=== PATIENT | female | born 1990 | race Caucasian/White ===

== ENCOUNTER → 2020-12-13 | Outpatient (CLI) | payer OTHER ==
--- NOTE | 2020-12-13 16:34 | FL ---
EXAMINATION TYPE: FL hysterosalpingography DATE OF EXAM: 12/13/2020 COMPARISON: None HISTORY: Infertility TECHNIQUE: The procedure was explained to the patient, the risks, indications and benefits. All quest ions are answered. Verbal informed consent was obtained. Timeout was performed. The patient was placed on the fluoroscopy table in supine position. Speculum was placed in the vagina l vault was cleansed with Betadine. The cervix was localized. The catheter was placed balloon was inf lated and under fluoroscopic observation contrast was administered. 6 mL Isovue 200 was utilized. Bal loon was deflated and additional imaging was performed. Patient was placed prone on the table for a o verhead radiograph. Discharge instructions were discussed with the patient. Patient was released in stable condition iliana retana tolerated the procedure very well. FINDINGS: Storekeeper Steward view: Storekeeper Steward view is felt to be noncontributory. Hysterosalpingogram: The uterus shape appears normal. No intraluminal or extramural defects are evide nt. Fallopian tubes are thin and delicate. There is easy flow through the left fallopian tube with fr ee spill into the pelvis. With additional contrast free spill on the right was observed. The balloon was inflated and the catheter withdrawn. The uterus appears normal through the cervical portion. Delayed image: There is free spill of contrast through the pelvis. Fluoroscopy time: 32 seconds Images: 12 IMPRESSION: 1. Normal hysterosalpingogram bilateral free spill.
== END | disposition home or self-care (01) ==
LOC: RADUSWWP 13:19
PROVIDERS: ATTEND Obstetrics & Gynecology Reproductive Endocrinology
DX: N97.9 Female infertility, unspecified (principal)
CPT/HCPCS: 58340; 74740; Q9966